=== PATIENT | female | born 1990 | race Asian ===

== ENCOUNTER 2019-12-14 20:00 | Emergency (ER) | payer BC, OTHER ==
[~2019-12-14] VITALS: Ht 157.5 cm; Wt 78.9 kg
[2019-12-14] MEDS ORDERED: SODIUM CHLORIDE FLUSH 10ML SYR IVF ONE (20:30)
--- NOTE | 2019-12-14 20:52 | NUR ---
pt called to room from lobby
[2019-12-14 21:24] LABS: ALANINE AMINOTRANSFERASE 58 U/L (12-78); ALBUMIN 3.7 g/dL (3.4-5.0); ANION GAP 7 mmol/L (5-15); CALCIUM 8.7 mg/dL (8.5-10.1); CHLORIDE 107 mmol/L (98-107); CREATININE 0.68 mg/dL (0.55-1.02)
[2019-12-14 21:29] LABS: ALKALINE PHOSPHATASE 139 U/L (45-117); BILIRUBIN,TOTAL 0.8 mg/dL (0.2-1.0); TOTAL PROTEIN 8.3 g/dL (6.4-8.2)
[2019-12-14] MEDS ORDERED: ONDANSETRON 2MG/ML, 2ML IVPush ONE (21:30)
[2019-12-14] MEDS ORDERED: MORPHINE SULFATE 4 MG/ML, 1ML IVPush PRN (21:30)
[2019-12-14] MEDS ORDERED: ONDANSETRON 2MG/ML, 2ML ONE (21:30)
[2019-12-14] MEDS ORDERED: MORPHINE SULFATE 4 MG/ML, 1ML ONE (21:31)
[2019-12-14 21:37] LABS: MEAN CORPUSCULAR HEMOGLOBIN 17.3 pg (27.0-34.8); MEAN CORPUSCULAR VOLUME 57.8 fL (80-100); MEAN PLATELET VOLUME 8.8 fL (7.4-10.4); PLATELET COUNT 225 x10^3/uL (130-400); RED BLOOD COUNT 5.02 x10^6/uL (3.82-5.3); RED CELL DISTRIBUTION WIDTH 22.5 % (9.6-15.2)
[2019-12-14 21:39] LABS: MD YES
[2019-12-14 21:41] LABS: BAND#(MANUAL) 0.13 x10^3/uL; BANDS%(MANUAL) 1 % (0-7); EOS#(MANUAL) 0.13 x10^3/uL (0.0-0.4); EOS% (MANUAL) 1 % (1-7); LYMPH#(MANUAL) 3.43 x10^3/uL (1-3.4); LYMPHS% (MANUAL) 26 % (22-44); MONOS#(MANUAL) 0.53 x10^3/uL (0.3-2.7); MONOS% (MANUAL) 4 % (2-9); SEG#(MANUAL) 8.98 x10^3/uL (1.8-6.8); SEGS% (MANUAL) 68 % (42-75)
[2019-12-14 21:43] LABS: ANISOCYTOSIS 2+; HYPOCHROMIA 1+; MICROCYTOSIS 2+; POLYCHROMASIA 1+
[2019-12-14 21:44] LABS: <PLATELET ESTIMATE> ADEQUATE; OVALOCYTES 1+; SCHISTOCYTES 1+; SPHEROCYTES 1+; TARGET CELLS 1+; TEAR DROPS 1+
[2019-12-14 21:45] LABS: LARGE PLATELETS 1+
[2019-12-15 00:01] VITALS: BP 106/54
== END 2019-12-15 00:06 | disposition home or self-care (01) ==
LOC: ED 12-15
DX: K80.20 Calculus of gallbladder without cholecystitis without obstruction (principal); R10.11 Right upper quadrant pain; R10.13 Epigastric pain
CPT/HCPCS: 36415; 76700; 80053; 83690; 84703; 85025; 96374; 96375; 99284; J2270; J2405